=== PATIENT | female | born 1995 | race Caucasian/White ===

== ENCOUNTER 2017-03-06 09:38 | Outpatient (POV) | payer OTHER, SELFPAY | END 2017-03-06 14:10 | disposition home or self-care (01) | PROVIDERS: Visit Provider Podiatrist | DX: M21.41 Flat foot [pes planus] (acquired), right foot (principal); M20.12 Hallux valgus (acquired), left foot; M20.11 Hallux valgus (acquired), right foot; M25.571 Pain in right ankle and joints of right foot | CPT/HCPCS: 99203 ==

== ENCOUNTER → 2017-03-19 12:34 | Outpatient (CLI) | payer OTHER, SELFPAY ==
[2017-03-19 12:53] LABS: Microscopic, Urine URINE MICROSCOPIC (MICROSCOPIC)
--- NOTE | 2017-03-19 13:23 | XR_ITS ---
XR chest 2V HISTORY: Tobacco use, smoker ITS.REASON: SMOKER, PRE OP ORDERING PHYSICIAN: Rose Phipps DPM PATIENT AGE: 22 years COMPARISON: 05/27/2013 FINDINGS: The cardiomediastinal silhouette and pulmonary vascularity are within normal limits. The lungs are clear without infiltrates, suspicious nodules, or pleural effusions. No acute bony abnormalities. IMPRESSION: Negative chest, no acute finding
[2017-03-19 13:47] LABS: Bilirubin,Urine Negative (Negative); Blood, Urine 1+ (Negative); Color,Urine YELLOW (Yellow); Glucose,Urine (UA) Negative (Negative); Ketones,Urine Negative (Negative); Leukocyte Esterase,Urine Negative (Negative); Nitrate,Urine Negative (Negative); PH,Urine 5.5 (5.0-8.5); Protein,Urine Negative (Negative); Specific Gravity, Urine >= 1.030 (1.005-1.030); Urobilinogen,Urine 0.2 EU/dl (0.2)
[2017-03-19 13:49] LABS: Basophils % 0.4 % (0.1-2.0); Eosinophils # 0.1 K/mm3 (0.0-0.4); Eosinophils % 1.3 % (0.1-12.0); Hematocrit 44.5 % (37.0-47.0); Lymphocytes # 2.5 K/mm3 (0.7-4.5); Lymphocytes % 30.5 K/mm3 (10-50); Mean Corpuscular HGB Conc 31.5 g/dL (31.8-35.4); Mean Corpuscular Hemoglobin 25.6 pg (27.0-31.2); Mean Corpuscular Volume 81.4 fl (81-99); Mean Platelet Volume 8.2 fl (7.4-10.4); Monocytes # 0.4 K/mm3 (0.1-1.0); Monocytes % 4.8 % (1.7-9.3); Neutrophils # 5.2 K/mm3 (1.8-7.8); Platelet Count 267 K/mm3 (142-424); Red Blood Count 5.47 M/mm3 (4.20-5.40); Red Cell Distribution Width 13.1 % (11.5-17.5); White Blood Count 8.2 K/mm3 (4.5-13.0)
[2017-03-19 13:58] LABS: Appearance,Urine Slightly Cloudy (Clear)
[2017-03-19 13:59] LABS: Urine Pregnancy, HCG Qual. Negative (Negative)
[2017-03-19 14:04] LABS: Bacteria,Urine Trace /lpf; Squamous Epithelial Cell,Urine 20-50 #/hpf (0-5)
[2017-03-19 15:04] LABS: Anion Gap 10.2 mEq/L (5-15); Blood Urea Nitrogen 12 mg/dL (7-18); Carbon Dioxide 28 mmol/L (21.0-32.0); Chloride 106 mmol/L (98-107); Creatinine,Serum 0.84 mg/dL (0.55-1.02); Estimated Glomerular Filt Rate > 60 ml/min (>60); GFR (African American) > 60 ML/MIN (>60); Glucose 100 mg/dL (74-106); Potassium 4.2 mmoL/L (3.5-5.1); Sodium 140 mmol/L (136-145)
== END ==
PROVIDERS: PCP Family Medicine; Visit Provider Podiatrist
DX: M21.611 Bunion of right foot (principal); M20.41 Other hammer toe(s) (acquired), right foot; Z01.818 Encounter for other preprocedural examination
CPT/HCPCS: 36415; 71046; 80048; 80323; 81001; 81025; 85025; 93005; G0480

== ENCOUNTER 2017-03-26 06:08 | Day surgery (SDC) | payer OTHER, SELFPAY ==
[2017-03-25 12:33] VITALS: BMI 41.4
[2017-03-26] VITALS (13 sets, daily range): BP systolic 105–141; BP diastolic 59–78; PULSE 79–89; RESP 16–26; TEMP 36.2–43; O2SAT 93–100
--- NOTE | 2017-03-26 07:15 | HMH.ANESCL ---
[facility] Anesthesia Checklist - Structural Data Admitted From: Home Planned Operative Procedure/s: bunionectomy Consent for Planned Operative Procedure(s) Verified: Yes Verified Documents: Surgical Consent - NPO Status Verified Time NPO: 12:00 - Additional verifications Anesthesia Reactions: No - Airway Assessment C-Spine Mobility Assessed: Yes TMJ Mobility Assessed: Yes Dentition: Good Dentition - Neurological Assessment Level of Consciousness: Awake, Alert - Anesthesia Plan Anesthesia Risk discussed: Yes Anesthesia Plan: Verified ASA Class: II Anesthesia Type: General [facility] Anesthesia HX I have reviewed the patient's past medical history: Yes Medical History: Denies:: Cancer, Diabetes Mellitus Type 1, Diabetes Mellitus Type 2, MRSA, Seizures Other Medical History: Denies: Blood Transfusion Reaction Laterality Cases: Bilateral: Tonsillectomy Amputation: No Fractures: Yes (broken wrists x2) *Family Hx:: Diabetes, Hypertension, Kidney Disease, Stroke
--- NOTE | 2017-03-26 07:18 | P.PN_ITS ---
[facility] Anesthesia Checklist - Structural Data Admitted From: Home Planned Operative Procedure/s: bunionectomy Consent for Planned Operative Procedure(s) Verified: Yes Verified Documents: Surgical Consent - NPO Status Verified Time NPO: 12:00 - Additional verifications Anesthesia Reactions: No - Airway Assessment C-Spine Mobility Assessed: Yes TMJ Mobility Assessed: Yes Dentition: Good Dentition - Neurological Assessment Level of Consciousness: Awake, Alert - Anesthesia Plan Anesthesia Risk discussed: Yes Anesthesia Plan: Verified ASA Class: II Anesthesia Type: General [facility] Anesthesia HX I have reviewed the patient's past medical history: Yes Medical History: Denies:: Cancer, Diabetes Mellitus Type 1, Diabetes Mellitus Type 2, MRSA, Seizures Other Medical History: Denies: Blood Transfusion Reaction Laterality Cases: Bilateral: Tonsillectomy Amputation: No Fractures: Yes (broken wrists x2) *Family Hx:: Diabetes, Hypertension, Kidney Disease, Stroke
--- NOTE | 2017-03-26 09:17 | FL_ITS ---
FL fluoroscopy >1hr Ordering Physician: Rose Phipps DPM Patient Age: 22 years: Female HISTORY: ITS.REASON: IN OR TECHNIQUE: Multiple spot AP view of a long lateral left foot under fluoroscopy in OR course of podiatry surgery COMPARISON :Plain films right and left foot. February 04, 2017 FINDINGS this side is not specified as to right or left on this study. As on the subsequent postoperative study was supports this as this to the right but The patient has a moderate hallux valgus . The subsequent films demonstrate the surgical changes suggest such with with fusion at the first carpal/metatarsal joint with a bone plate applied dorsally and secured by multiple screws but there is also a pin & subsequent transverse screws at the base of the first and second metatarsals as seen on final image. IMPRESSION: Multiple spot images in OR from fusion of first tarsal metatarsal joint
--- NOTE | 2017-03-26 09:52 | HMH.ANESI ---
[facility] Anesthesia Record Part I Intake, IV Amount: 1,600 Estimated blood loss (mL): 0 Urine output (mL): 0 Blood Pressure: 113/66 SaO2: 100 Pulse Rate: 87 Respiratory Rate: 16 Temperature: 97.5 F Patient is:: Awake, Stable Stable to PACU at:: 09:50
--- NOTE | 2017-03-26 09:53 | XR_ITS ---
XR foot RT min 3V HISTORY: Follow-up surgery ITS.REASON: post op ORDERING PHYSICIAN: Rose Phipps DPM PATIENT AGE: 22 years COMPARISON: 02/04/2017 FINDINGS: There has been fusion of the first metatarsotarsal joint with a bone plate present dorsally and multiple screws. An additional transversely screws present through the base of the first and second metatarsals. There is good alignment of the bony elements. IMPRESSION: Post surgical changes with fusion of the first metatarsal tarsal joint as described above.
--- NOTE | 2017-03-26 09:53 | P.PN_ITS ---
[facility] Anesthesia Record Part II Discharge Time: 10:20 Destination: [facility] PACU nurse assessment reviewed?: Yes Patient Condition:: Good Anesthesia Complications:: None
--- NOTE | 2017-03-26 09:53 | HMH.ANESII ---
[facility] Anesthesia Record Part II Discharge Time: 10:20 Destination: [facility] PACU nurse assessment reviewed?: Yes Patient Condition:: Good Anesthesia Complications:: None
--- NOTE | 2017-03-26 10:12 | HMH.OPNOTE ---
Date of procedure: 03/26/17 Pre-op Diagnosis:: Right hallux abductovalgus deformity Right gastrocnemius equinus Right 2nd digit reducible hammertoe Post-op diagnosis:: other (Same + Right 1st MPJ ganglion cyst) Procedure performed:: 1. Right Lapidus bunionectomy 2. Right Excision of ganglion cyst Surgeon:: Rose Phipps DPM SUPERVISOR [employer]:: Gio Bustillos Anesthesia: GETA Estimated blood loss (mL): 20 Clinical Note:: Ms. Wood is a 22 y/o female who presents for follow up evaluation of painful right foot. Patient has been using the toe spacers and otc inserts. She has not noticed any improvement. Walking barefoot makes pain worse. Wearing supportive tennis shoes help a little. She has also tried to ice, elevate and take NSAIDs. Patient is requesting surgical intervention. Patient/mother states she developed the bunion several years ago. But over the last year the pain is gotten worse. 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 She was referred by Dr. Corley for surgical evaluation. Operative findings:: Right large bunion with first 1st met-cun instability Intercuneiform instability Right 1st MPJ ganglion cyst Operative note:: On this date and time patient was deemed an appropriate surgical candidate. With informed consent signed, the patient was taken to the operating theater, after the anesthesia team had given a pre-op regional popliteal block. The patient was positioned supine. General anesthesia was induced. Tourniquet was applied to the right mid-calf. Right Lapidus Bunionectomy: The right lower extremity was prepped and draped in normal sterile fashion. Attention was directed to the 1st metatarsophalangeal joint (MPJ), where a dorsal linear incision was mapped out extending proximally to the cuneiform. The tourniquet was inflated at 225 mmHg. Dissection was carried thru skin and subcutaneous tissue with care taken to maintain surgical hemostasis and safely retract neurovascular structures. Dissection was then carried through deep fascia and T-out at the level of the 1st MPJ, exposed the met head. There was synovitis and and a ganglion cyst noted over the extensor tendon at the level of the 1st MPJ. Excision of Ganglion Cyst: Attention was directed to the joint where the ganglion was excised sharply with a 15 blade. The specimen was sent to pathology. Attention was directed to the 1st interspace where a lateral release was performed, including release of the adductor tendon at its insertion on the base of the proximal phalanx and release of the fibular suspensory ligament. Some release of the contracture was noted. Attention was then directed proximal to the 1st MCJ, where increased sagittal plane ROM was appreciated. Using saw then hand resection with osteotome and curettes, the cartilage was removed from the met and distal cuneiform. The wound was flushed with copious amounts of saline. A 2.0 drill bit was used to fenestrate the subchondral bone plate to good healthy bleeding bone. At this point, the bunion was reduced and temporary fixation inserted across the 1st MCJ. Position was checked under intra-op fluoroscopy. [facility] Crosscheck lapidus plate was applied distally and 2 distal locking screws followed by intra-fragmentary compression screw followed by 2 proximal locking screws were then inserted in standard technique. Intra operative fluro was used, position and fixation stable. The reduction clamp was removed and there was noted to be some loss of correction and widening of the cuneiforms, indicating intercuneiform instability. A Dartfire 4.0mm cannulated screw was inserted from medial 1st met into the 2nd met base. Good apposition and position was noted. Good compression and better stability noted. The wound was flushed. Attention was directed distally back to the MPJ, where power resection was used to remove the dorsal medial eminence. A capsulotomy was per
--- NOTE | 2017-03-26 10:16 | P.OP_ITS ---
Date of procedure: 03/26/17 Pre-op Diagnosis:: Right hallux abductovalgus deformity Right gastrocnemius equinus Right 2nd digit reducible hammertoe Post-op diagnosis:: other (Same + Right 1st MPJ ganglion cyst) Procedure performed:: 1. Right Lapidus bunionectomy 2. Right Excision of ganglion cyst Surgeon:: Rose Phipps DPM GOLF [employer] PATROLLER:: Gio Bustillos Anesthesia: GETA Estimated blood loss (mL): 20 Clinical Note:: Ms. Wood is a 22 y/o female who presents for follow up evaluation of painful right foot. Patient has been using the toe spacers and otc inserts. She has not noticed any improvement. Walking barefoot makes pain worse. Wearing supportive tennis shoes help a little. She has also tried to ice, elevate and take NSAIDs. Patient is requesting surgical intervention. Patient/mother states she developed the bunion several years ago. But over the last year the pain is gotten worse. 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 She was referred by Dr. Corley for surgical evaluation. Operative findings:: Right large bunion with first 1st met-cun instability Intercuneiform instability Right 1st MPJ ganglion cyst Operative note:: On this date and time patient was deemed an appropriate surgical candidate. With informed consent signed, the patient was taken to the operating theater, after the anesthesia team had given a pre-op regional popliteal block. The patient was positioned supine. General anesthesia was induced. Tourniquet was applied to the right mid-calf. Right Lapidus Bunionectomy: The right lower extremity was prepped and draped in normal sterile fashion. Attention was directed to the 1st metatarsophalangeal joint (MPJ), where a dorsal linear incision was mapped out extending proximally to the cuneiform. The tourniquet was inflated at 225 mmHg. Dissection was carried thru skin and subcutaneous tissue with care taken to maintain surgical hemostasis and safely retract neurovascular structures. Dissection was then carried through deep fascia and T-out at the level of the 1st MPJ, exposed the met head. There was synovitis and and a ganglion cyst noted over the extensor tendon at the level of the 1st MPJ. Excision of Ganglion Cyst: Attention was directed to the joint where the ganglion was excised sharply with a 15 blade. The specimen was sent to pathology. Attention was directed to the 1st interspace where a lateral release was performed, including release of the adductor tendon at its insertion on the base of the proximal phalanx and release of the fibular suspensory ligament. Some release of the contracture was noted. Attention was then directed proximal to the 1st MCJ, where increased sagittal plane ROM was appreciated. Using saw then hand resection with osteotome and curettes, the cartilage was removed from the met and distal cuneiform. The wound was flushed with copious amounts of saline. A 2.0 drill bit was used to fenestrate the subchondral bone plate to good healthy bleeding bone. At this point, the bunion was reduced and temporary fixation inserted across the 1st MCJ. Position was checked under intra-op fluoroscopy. [facility] Crosscheck lapidus plate was applied distally and 2 distal locking screws followed by intra-fragmentary compression screw followed by 2 proximal locking screws were then inserted in standard technique. Intra operative fluro was used, position and fixation stable. The reduction clamp was removed and there was noted to be some loss of correction and widening of the cuneiforms, indicating intercuneiform instability. A Dartfire 4.0mm cannulated screw was inserted from medial 1st met into the 2nd met base.
== END 2017-03-26 11:33 | disposition home or self-care (01) ==
PROVIDERS: PCP Family Medicine; Visit Provider Podiatrist
PROC: (CPT 28297; principal; 2017-03-26 07:30)
DX: M21.611 Bunion of right foot (principal); M67.471 Ganglion, right ankle and foot; M20.41 Other hammer toe(s) (acquired), right foot
CPT/HCPCS: 28297; 28090; 28285; 73620; 73630; 76001; 96374; C1713; C1762; C1776; J2405

== ENCOUNTER → 2017-04-09 12:05 | Outpatient (CLI) | payer OTHER, SELFPAY ==
--- NOTE | 2017-04-09 | XR_ITS ---
XR foot RT min 3V HISTORY: Follow-up surgery ORDERING PHYSICIAN: Rose Phipps DPM PATIENT AGE: 22 years COMPARISON: 03/26/2017 FINDINGS: There is a dictated through a split. Weightbearing views are performed. There is good alignment of the first metatarsal tarsal junction as well as the base of the second and first metatarsals. Persistent bone plate noted dorsally at the first metatarsal tarsal junction with a transverse screw extending from the base of the first metatarsal into the base of the second metatarsal. IMPRESSION: No change status post arthrodesis of the first metatarsophalangeal joint with good alignment.
== END ==
PROVIDERS: Visit Provider Podiatrist
DX: Z98.890 Other specified postprocedural states (principal); S92.344D Nondisplaced fracture of fourth metatarsal bone, right foot, subsequent encounter for fracture with routine healing
CPT/HCPCS: 73630

== ENCOUNTER → 2017-04-22 08:20 | Outpatient (CLI) | payer OTHER, SELFPAY ==
--- NOTE | 2017-04-22 | XR_ITS ---
XR foot RT min 3V HISTORY: Follow-up surgery ITS.REASON: POST OP VIEWS ORDERING PHYSICIAN: Rose Phipps DPM PATIENT AGE: 22 years COMPARISON: 04/09/2017 FINDINGS: The cast has been removed. Status post arthrodesis of the first metatarsal tarsal joint as previously described with good alignment with a transverse screw present through the base of the first and second metatarsals. There is mild soft tissue swelling medially first metatarsophalangeal joint There is a nondisplaced fracture at the base of the fourth metatarsal not readily apparent previously. IMPRESSION: 1. Stable postsurgical changes of the first metatarsotarsal joint 2. Nondisplaced transverse fracture base of the metatarsal
== END ==
PROVIDERS: Visit Provider Podiatrist
DX: Z98.890 Other specified postprocedural states (principal)
CPT/HCPCS: 73630

== ENCOUNTER → 2017-05-13 08:02 | Outpatient (CLI) | payer OTHER, SELFPAY ==
--- NOTE | 2017-05-13 08:55 | XR_ITS ---
XR foot RT min 3V HISTORY: Follow-up surgery ITS.REASON: POST OP ORDERING PHYSICIAN: Rose Phipps DPM PATIENT AGE: 22 years COMPARISON: 04/22/2017 FINDINGS: Status post arthrodesis of the first metatarsal tarsal joint as previously described with good alignment with a transverse screw present through the base of the first and second metatarsals. There is mild soft tissue swelling medially first metatarsophalangeal joint There is a nondisplaced fracture at the base of the fourth metatarsal with decrease prominence of the fracture line consistent with healing. IMPRESSION: 1. Stable postsurgical changes of the first metatarsotarsal joint 2. Healing nondisplaced transverse fracture base of the fourth metatarsal
== END ==
PROVIDERS: Visit Provider Podiatrist
DX: Z98.890 Other specified postprocedural states (principal)
CPT/HCPCS: 73630

== ENCOUNTER 2017-06-04 14:00 | Outpatient (RCR) | payer OTHER, SELFPAY ==
--- NOTE | 2017-05-16 14:33 | HMH.PTOPEV ---
Rehab Outpatient Evaluation Rehab OP Evaluation Start: 05/16/17 14:20 Freq: Status: Active Protocol: Document 05/16/17 14:20 KIEL (Rec: 05/16/17 14:33 KIEL [id number]) Electronically Signed By Connor Hernandes, PT 05/16/17 14:20 Outpatient Therapy Subjective History Subjective History Pt presents s/p R lapidus procedure on 03/26/17. Pt reports some residual R foot pain since sx., [place]. w/wt. bearing activities in street shoes. Pt reports some mild weakness in R foot and ankle, but progressing well. Chief Complaint Pain Weakness Symptom Type Ache Sharp Dull Symptoms Relieved By Rest/Positioning Symptoms Aggravated By Standing Physical Activity Walking Prior Functional Limitations None Current Functional Limitations Standing Walking Stairs Symptom Description Constant but Variable Level of pain today (0-10) 3 Pain scale - at its best (0-10) 2 Pain scale - at its worst (0-10) 5 Ankle/Foot Eval Gait Observation General Gait Pattern Observation Antalgic Gait Palpation Tenderness right Ankle/Foot Palpation Findings Tenderness Ankle/Foot Palpation Overall Comment 1st ray 3/4 ROM Ankle/Foot Dorsiflexion w/Knee Flexed 0-15 Active Range of Motion (degrees) Ankle/Foot Plantar Flexion Active Range 0-50 of Motion (degrees) Ankle/Foot Eversion Active Range of 0-11 Motion (degrees) Ankle/Foot Inversion Active Range of 0-45 Motion (degrees) Ankle/Foot ROM Limitations Pain MMT Ankle Dorsiflexion Strength Grade 4 Good Ankle Plantarflexion Strength Grade 4 Good Foot Eversion Strength Grade 4- Good- Foot Inversion Strength Grade 4- Good- Outpatient Therapy Assessment Impairments Problems/Impairmments Palpation Tenderness Impaired Range of Motion Impaired Strength Impaired Gait Pattern Impaired Walking Impaired Standing Impaired Stair Climbing Subjective C/O Pain Impaired Self Care/Self Management Prognosis Rehab Potential Good Clinical Impression Consistent with Diagnosis
== END 2017-06-04 14:01 | disposition home or self-care (01) ==
LOC: PT 14:00
PROVIDERS: Visit Provider Podiatrist
DX: Z98.890 Other specified postprocedural states (principal); M20.11 Hallux valgus (acquired), right foot
CPT/HCPCS: 97010; 97014; 97033; 97035; G0283

== ENCOUNTER → 2017-06-24 08:52 | Outpatient (CLI) | payer OTHER, SELFPAY ==
--- NOTE | 2017-06-24 08:54 | XR_ITS ---
Right foot 3 views Weightbearing Foot 3 Views HISTORY: Follow-up surgery/fusion ORDERING PHYSICIAN: Rose Phipps DPM PATIENT AGE: 22 years COMPARISON: 05/13/2017 FINDINGS: Overall no change status post dorsal bone plate placement at the medial cuneiform and first metatarsal with a transverse screw through the base of the first metatarsal into the base of the second metatarsal. Status post fusion of the first metatarsal tarsal joint. No change in alignment. Previously noted fracture at the base of the fourth metatarsal less apparent. IMPRESSION: Overall no change status post fusion of the first tarsometatarsal joint
== END ==
PROVIDERS: Visit Provider Podiatrist
DX: Z98.890 Other specified postprocedural states (principal)
CPT/HCPCS: 73630

== ENCOUNTER 2019-08-12 12:28 | Emergency (ER) | payer OTHER, SELFPAY ==
[2019-08-12 12:41] VITALS: BP 159/99; PULSE 96; RESP 16; TEMP 36.6; O2SAT 96; BMI 43.0
--- NOTE | 2019-08-12 13:32 | HMH.EDWNDL ---
ED Disposition Clinical Impression: Laceration Disposition: Home, Self-Care Condition on Discharge: Good Instructions: DI for Laceration Repair Referrals: Edis Mccoy MD [Primary Care Provider] - Forms: Work/School Release - Critical Care Critical Care Time: No Attestation: On 08/12/19, the high probability of a clinically significant, sudden or life threatening deterioration of the following system(s) required my full and direct attention, intervention and personal management. The time I documented below is in addition to time spent performing reported procedures but includes the following listed in this critical care notation. Medical Decision Making - Medical Records Medical records reviewed: Yes: I reviewed the patient's medical records. - Yaya Inquiry Pt receiving controlled substance: No Vital Signs: 08/12/19 12:41 Temperature 98 F Temperature Source Oral Pulse Rate [Left Radial] 96 H Respiratory Rate 16 Blood Pressure [Right Arm] 159/99 H Blood Pressure Mean [Right Arm] 119 Blood Pressure Position [Right Arm] Sitting 02 Sat by Pulse Oximetry 96 Oxygen Delivery Method Room Air - Lab Data Lab results reviewed: Yes: I reviewed the patient's lab results. Orders (Tests/Meds): ED MEDICATIONS Discontinued Medications Generic Name Dose Route Start Last Admin Trade Name Freq PRN Reason Stop Dose Admin Tetanus/Reduced Diphtheria/Acell Pertussis 0.5 ml 08/12/19 12:47 08/12/19 12:50 Adacel Tdap 0.5ml Syringe IM 08/12/19 12:48 0.5 ml .ONCE ONE Administration Wound/Laceration HPI - General Chief Complaint: Wound/Laceration Stated Complaint: [id number] left thumb injury Time Seen by Provider: 08/12/19 13:32 Mode of Arrival: Ambulatory Source of Information: Patient Limitations: No Limitations Description of Symptoms (Recalled from ER Triage Doc. 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 no active bleeding noted - History of Present Illness HPI narrative: 24-year-old female presents the ED with a laceration on her index finger. 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 Or she may have been cutting peppers. Nonetheless she has a minor laceration to the nailbed on the left index finger that just happened prior to arrival. Patient denies any pain. Patient denies any other symptoms. - Related Data Previous Rx's Medication Instructions Recorded [id number]-[id number] 10 ml PO Q4-6H PRN #240 ml 04/10/18 2 mg-30 mg-10 mg/5 mL oral syrup Tizanidine HCl [Zanaflex 4mg 4 mg PO TID PRN 7 Days #20 tab 10/23/18 tab] Ibuprofen [Ibuprofen 600mg 600 mg PO Q6HP PRN #30 tab 03/21/19 Tablet] Allergies Allergy/AdvReac Type Severity Reaction Status Date / Time No Known Allergies Allergy Unverified 04/10/18 15:12 [facility] History - Hepatitis A Screen Drug use history?: No High risk sexual behaviors?: No History of sexually transmitted infection?: No Currently employed?: No Childcare worker?: No Do you have indoor plumbing?: Yes Do you have electricity?: Yes Attestation statement:: This patient has been screened for Hepatitis A risk factors. I have reviewed the patient's past medical history: Yes Medical History: Reports:: Asthma Denies:: Cancer, Diabetes Mellitus Type 1, Diabetes Mellitus Type 2, MRSA, Seizures Other Medical History: Denies: Blood Transfusion Reaction Laterality Cases: Bilateral: Tonsillectomy, Other Other Surgeries: Yes: Other Amputation: No Fractures: Yes (broken wrists x2) - Social History Smoking Status: Current every day smoker Tobacco Type: cigarettes # Packs/Day (cigarettes): 1 #Yrs smoked (if former smoker): 4 Alcohol Intake: never Alcohol Intake Frequency:: 0-2 drinks per day Occupational Status: other Housing: other Household Members: other Family Hx:: Diabetes, Hypertension, Kidney Disease, Stroke ROS Obtained: Yes All systems reviewed & no aleta
[2019-08-12 13:34] VITALS: BP 150/89; PULSE 77; RESP 16; TEMP 36.6; O2SAT 98
== END 2019-08-12 13:35 | disposition home or self-care (01) ==
PROVIDERS: Emergency Provider Family Medicine; PCP Family Medicine
DX: S61.012A Laceration without foreign body of left thumb without damage to nail, initial encounter (principal); W26.0XXA Contact with knife, initial encounter; Y92.69 Other specified industrial and construction area as the place of occurrence of the external cause; Y99.0 Civilian activity done for income or pay; Z23 Encounter for immunization
CPT/HCPCS: 12001; 90471; 90715; 99282

== ENCOUNTER 2020-03-26 10:20 | Emergency (ER) | payer OTHER, SELFPAY ==
[2020-03-26 10:35] VITALS: BP 116/77; PULSE 83; RESP 17; TEMP 36.8; O2SAT 99; BMI 42.2
--- NOTE | 2020-03-26 10:58 | HMH.EDUTC ---
[facility] [place] Disposition Clinical Impression: Exposure to COVID-19 virus Disposition: Home, Self-Care Condition on Discharge: Good Instructions: DI for COVID-19 (Suspected or Confirmed ), Coronavirus Disease 2019, Preventing the Spread of Coronavirus Discharge Instructions Additional Instructions: *Monitor Temp, Over the counter Motrin or Tylenol as directed/as needed Tylenol every 4 hours and Motrin every 6 hours (as long as your family doctor has told you that you can take it) for fever or pain. and straight to ER if unable to lower temp less than 101.0 after medication given Follow up IMMEDIATELY for new or worsening symptoms or no Noticeable improvement over the next 48-72 hours. 911 for difficulty breathing or swallowing You were tested for today for COVID19 your test result should be back in the next 24-48 hours, you may call to the [facility] to see if your test results are back in the next 48 hours [phone] [facility] hours are 9am-9pm You was given a handout with instructions for Self Quarantine and Self isolation for while you wait on test results and what to do if they are positive If you are positive the Health Dept will be contacting you also Referrals: Tay Ace MD [Primary Care Provider] - As needed Forms: Work/School Release Time of Disposition: 10:59 Medical Decision Making - Yaya Inquiry Pt receiving controlled substance: No Yaya was queried for this patient: No Vital Signs: 03/26/20 10:35 Temperature 98.2 F Temperature Source Oral Pulse Rate [Right Brachial] 83 Respiratory Rate 17 Blood Pressure [Right Arm] 116/77 Blood Pressure Mean [Right Arm] 90 Blood Pressure Source [Right Arm] Automatic Cuff Blood Pressure Position [Right Arm] Sitting 02 Sat by Pulse Oximetry 99 Oxygen Delivery Method Room Air Orders (Tests/Meds): ORDERS Category Date Time Status Covid-19 Nasal PCR ([facility]) Routine Lab 03/26/20 10:24 Ordered [facility] [place] HPI - General Stated complaint: covid test Time Seen by Provider: 03/26/20 10:58 Mode of Arrival: Ambulatory Source of Information: Patient Limitations: No Limitations Description of Symptoms (Recalled from Triage Doc. by RN): COVID TEST D/T EXPOSURE; DENIES SYMPTOMS HEENT Symptoms (Recalled from RN notes): No Resp Symptoms (Recalled from RN notes): No Skin Symptoms (Recalled from RN notes): No MS Symptoms (Recalled from RN notes): No Functional Status (Recalled from RN notes): WNL - History of Present Illness Provider Complaint: Patient states that she lives with her mother and she tested positive for COVID yesterday States that she isnt having any symptoms but wanted to get tested - Related Data Previous Rx's Medication Instructions Recorded cbbgiwqwyypjhsy-yghccqssvupufiv-WJ 10 ml PO Q4-6H PRN #240 ml 04/10/18 2 mg-30 mg-10 mg/5 mL oral syrup Tizanidine HCl [Zanaflex 4mg 4 mg PO TID PRN 7 Days #20 tab 10/23/18 tab] Ibuprofen [Ibuprofen 600mg 600 mg PO Q6HP PRN #30 tab 03/21/19 Tablet] Allergies Allergy/AdvReac Type Severity Reaction Status Date / Time No Known Allergies Allergy Unverified 04/10/18 15:12 - Worker's Comp Is this a Worker's Comp case?: No [facility] History - Hepatitis A Screen Drug use history?: No High risk sexual behaviors?: No History of sexually transmitted infection?: No Currently employed?: No Childcare worker?: No Do you have indoor plumbing?: Yes Do you have electricity?: Yes Attestation statement:: This patient has been screened for Hepatitis A risk factors. I have reviewed the patient's past medical history: Yes Medical History: Reports:: Asthma Denies:: Cancer, Diabetes Mellitus Type 1, Diabetes Mellitus Type 2, MRSA, Seizures Other Medical History: Denies: Blood Transfusion Reaction Laterality Cases: Bilateral: Tonsillectomy, Other Other Surgeries: Yes: Other Amputation: No Fractures: Yes (broken wrists x2) - Social History Smoking Status: Current every day smoker Tobacco Type: cigarettes
[2020-03-26 10:59] VITALS: BP 116/77; PULSE 83; RESP 17; TEMP 36.8; O2SAT 99
--- NOTE | 2020-03-26 17:11 | PC.NURSE ---
PT NOTIFIED OF POSITIVE COVID RESULT
== END 2020-03-26 11:00 | disposition home or self-care (01) ==
PROVIDERS: Emergency Provider Nurse Practitioner; PCP Internal Medicine Adolescent Medicine
DX: U07.1 COVID-19 (principal); J45.909 Unspecified asthma, uncomplicated; Z79.899 Other long term (current) drug therapy
CPT/HCPCS: 99202; G0463; U0003

== ENCOUNTER 2020-08-24 13:42 | Emergency (ER) | payer SELFPAY ==
[2020-08-24 13:45] VITALS: BP 133/77; PULSE 74; RESP 21; TEMP 36.8; O2SAT 99; BMI 44.5
[2020-08-24 14:05] VITALS: BP 133/77; PULSE 74; RESP 21; TEMP 36.8; O2SAT 99
--- NOTE | 2020-08-24 14:07 | HMH.EDUTC ---
[facility] [place] Clinical Impression: Otitis media Qualifiers: Otitis media type: suppurative Chronicity: acute Laterality: bilateral Recurrence: non-recurrent Spontaneous tympanic membrane rupture: without spontaneous rupture Qualified Code(s): H66.003 - Acute suppurative otitis media without spontaneous rupture of ear drum, bilateral Disposition: Home, Self-Care Condition on Discharge: Good Instructions: Middle Ear Infection Additional Instructions: Drink plenty of fluids. Take tylenol or ibuprofen for pain or fever. Take the medications as directed. Follow up with your regular doctor. GO TO THE ER FOR ANY WORSENING SYMPTOMS Prescriptions: Pseudoephedrine HCl 30 mg PO Q6HP PRN #30 tab PRN Reason: Congestion Transmission Status: Received by [id number] Amoxicillin/Potassium Clav [Augmentin 875-125 Tablet] 1 tab PO Q12H 10 Days #20 tab Transmission Status: Received by [email or web address] methylPREDNISolone [Medrol] 4 mg PO DIRECTED 6 Days #21 tab.ds.pk Transmission Status: Received by [id number] Referrals: Provider,Referral, [Primary Care Provider] - Forms: Work/School Release Time of Disposition: 14:09 Medical Decision Making - Medical Records Medical records reviewed: No: I reviewed the patient's medical records. - Yaya Inquiry Pt receiving controlled substance: No Vital Signs: 08/24/20 13:45 08/24/20 14:05 Temperature 98.3 F 98.3 F Temperature Source Oral Pulse Rate 74 Pulse Rate [Right Brachial] 74 Respiratory Rate 21 21 Blood Pressure 133/77 Blood Pressure [Right Arm] 133/77 Blood Pressure Mean [Right Arm] 95 Blood Pressure Source [Right Arm] Automatic Cuff Blood Pressure Position [Right Arm] Sitting 02 Sat by Pulse Oximetry 99 Oxygen Delivery Method Room Air [facility] [place] - General Stated complaint: cant hear out of Rt ear Time Seen by Provider: 08/24/20 14:07 Mode of Arrival: Ambulatory Source of Information: Patient Limitations: No Limitations Description of Symptoms (Recalled from Triage Doc. by RN): PATIENT C/O TROUBLE HEARING OUT OF RIGHT EAR WITH PRESSURE AND RINGING IN IT X 1.5 WEEKS. STATES LEFT EAR IS BEGINNING TO FEEL THE SAME WAY HEENT Symptoms (Recalled from RN notes): Yes Resp Symptoms (Recalled from RN notes): No Skin Symptoms (Recalled from RN notes): No MS Symptoms (Recalled from RN notes): No Functional Status (Recalled from RN notes): WNL - History of Present Illness Provider Complaint: She c/o decreased hearing and pain of her left ear. She denies any fever or chills. - Related Data Previous Rx's Medication Instructions Recorded Amoxicillin/Potassium Clav 1 tab PO Q12H 10 Days #20 tab 08/24/20 [Augmentin 875-125 Tablet] Pseudoephedrine HCl 30 mg PO Q6HP PRN #30 tab 08/24/20 methylPREDNISolone [Medrol] 4 mg PO DIRECTED 6 Days #21 08/24/20 tab.ds.pk Allergies Allergy/AdvReac Type Severity Reaction Status Date / Time No Known Allergies Allergy Verified 03/26/20 10:58 - Worker's Comp Is this a Worker's Comp case?: No [facility] History - Hepatitis A Screen Drug use history?: No High risk sexual behaviors?: No History of sexually transmitted infection?: No Currently employed?: No Childcare worker?: No Do you have indoor plumbing?: Yes Do you have electricity?: Yes Attestation statement:: This patient has been screened for Hepatitis A risk factors. I have reviewed the patient's past medical history: Yes Medical History: Reports:: Asthma Denies:: Cancer, Diabetes Mellitus Type 1, Diabetes Mellitus Type 2, MRSA, Seizures Other Medical History: Denies: Blood Transfusion Reaction Laterality Cases: Bilateral: Tonsillectomy, Other Other Surgeries: Yes: Other Amputation: No Fractures: Yes (broken wrists x2) - Social History Smoking Status: Current every day smoker Tobacco Type: cigarettes # Packs/Day (cigarettes): 1 #Yrs smoked (if former smoker): 4 Alcohol Intake: never Alcohol Intake
== END 2020-08-24 14:13 | disposition home or self-care (01) ==
PROVIDERS: Emergency Provider Nurse Practitioner Family
DX: H66.003 Acute suppurative otitis media without spontaneous rupture of ear drum, bilateral (principal); F17.210 Nicotine dependence, cigarettes, uncomplicated; J45.909 Unspecified asthma, uncomplicated
CPT/HCPCS: 99202; G0463

== ENCOUNTER 2021-05-18 18:43 | Emergency (ER) | payer SELFPAY ==
[2021-05-18 18:45] VITALS: BP 133/87; PULSE 109; RESP 20; TEMP 38; O2SAT 97; BMI 46.3
--- NOTE | 2021-05-18 19:26 | HMH.EDUTC ---
[facility] [place] Disposition Clinical Impression: Nausea vomiting and diarrhea Disposition: Home, Self-Care Condition on Discharge: Good Instructions: Nausea and Vomiting-Adult, Diarrhea Additional Instructions: Drink extra fluids with and between meals. If you have difficulty drinking, try very small amounts of water or suck on ice chips. ? Avoid fruit juices, as these do not replace minerals and can actually increase diarrhea. ? Children and adults can use sports drinks to replenish electrolytes. Younger children and infants should use products formulated for children, like oral rehydration solutions. ? Eat food in small amounts and let your stomach recover. ? Get lots of rest. You may feel tired or weak. ? No greasy or fried foods for the next 24-48 hours BRAT diet Bananas Rice Apples and Turpin ? Make sure to drink plenty of liquids ? Return if needed ? Straight to ER if any life threatening symptoms ? Zofran as prescribed ? Follow up with family doctor in the next 48-72 hours if no improvement or any worsening of symptoms Prescriptions: Ondansetron [Zofran 4mg ODT] 4 mg PO TIDP PRN #12 tab PRN Reason: Vomiting Transmission Status: Pending to [id number] Referrals: Tay Ace MD [Primary Care Provider] - As needed Time of Disposition: 20:08 Medical Decision Making - Yaya Inquiry Pt receiving controlled substance: No Yaya was queried for this patient: No Vital Signs: 05/18/21 18:45 Temperature 100.4 F H Temperature Source Oral Pulse Rate [Right Brachial] 109 H Respiratory Rate 20 Blood Pressure [Right Arm] 133/87 Blood Pressure Mean [Right Arm] 102 Blood Pressure Source [Right Arm] Automatic Cuff Blood Pressure Position [Right Arm] Sitting 02 Sat by Pulse Oximetry 97 Oxygen Delivery Method Room Air - Lab Data Lab results reviewed: Yes: I reviewed the patient's lab results. Lab Results 05/18/21 19:34: [facility] Negative Orders (Tests/Meds): ED MEDICATIONS Discontinued Medications Generic Name Dose Route Start Last Admin Trade Name Freq PRN Reason Stop Dose Admin Ondansetron HCl 4 mg 05/18/21 19:40 Ondansetron 4mg Odt SL 05/18/21 19:41 ONCE ONE Medical Decision Narrative: Patient drinking water after zofran no vomiting [facility] [place] HPI - General Stated complaint: V&D. Time Seen by Provider: 05/18/21 19:26 Mode of Arrival: Ambulatory Source of Information: Patient Limitations: No Limitations Description of Symptoms (Recalled from Triage Doc. by RN): PATIENT C/O VOMITING AND DIARRHEA SINCE LAST NIGHT, FEVER TODAY HEENT Symptoms (Recalled from RN notes): No Resp Symptoms (Recalled from RN notes): No Skin Symptoms (Recalled from RN notes): No MS Symptoms (Recalled from RN notes): No Functional Status (Recalled from RN notes): WNL - History of Present Illness Provider Complaint: Lianat states that she was around mother that had stomach virus last week States that she has been having vomiting and diarrhea since last night State that when she eats it makes her sick at her stomach but she has been able to drink and keep it down States that this evening she was still having nausea so she came in to see if she can get something for it - Related Data Previous Rx's Medication Instructions Recorded Ondansetron [Zofran 4mg ODT] 4 mg PO TIDP PRN #12 tab 05/18/21 Allergies Allergy/AdvReac Type Severity Reaction Status Date / Time No Known Allergies Allergy Verified 03/26/20 10:58 - Worker's Comp Is this a Worker's Comp case?: No [facility] History - Hepatitis A Screen Drug use history?: No High risk sexual behaviors?: No History of sexually transmitted infection?: No Currently employed?: No Childcare worker?: No Do you have indoor plumbing?: Yes Do you have electricity?: Yes Attestation statement:: This patient has been screened for Hepatitis A risk factors. I have reviewed the patient's past medical history: Yes Medical History:
[2021-05-18 19:43] LABS: UTC Pregnancy Test, Urine Negative (Negative)
[2021-05-18 20:09] VITALS: BP 133/87; PULSE 109; RESP 20; TEMP 37.2; O2SAT 97
== END 2021-05-18 20:13 | disposition home or self-care (01) ==
PROVIDERS: Emergency Provider Nurse Practitioner; PCP Internal Medicine Adolescent Medicine
DX: R11.2 Nausea with vomiting, unspecified (principal); R19.7 Diarrhea, unspecified; R50.9 Fever, unspecified; J45.909 Unspecified asthma, uncomplicated; F17.210 Nicotine dependence, cigarettes, uncomplicated; Z82.49 Family history of ischemic heart disease and other diseases of the circulatory system; Z83.3 Family history of diabetes mellitus; Z84.1 Family history of disorders of kidney and ureter
CPT/HCPCS: 81025; 99213; G0463

== ENCOUNTER 2022-05-05 22:21 | Emergency (ER) | payer OTHER, SELFPAY ==
[2022-05-05 22:21] VITALS: BP 136/64; PULSE 91; RESP 17; TEMP 36.8; O2SAT 100; BMI 43.3
--- NOTE | 2022-05-05 22:27 | XR_ITS ---
PROCEDURE INFORMATION: Exam: XR Chest Exam date and time: 05/05/2022 11:13 PM Age: 27 years old Clinical indication: Chest wall pain; Additional info: Chest pain TECHNIQUE: Imaging protocol: Radiologic exam of the chest. Views: 1 view. COMPARISON: CR CXR1VP XR chest portable 10/08/2017 6:55 PM FINDINGS: Lungs: Unremarkable. No consolidation. Pleural spaces: Unremarkable. No pleural effusion. No pneumothorax. Heart/Mediastinum: Unremarkable. No cardiomegaly. Bones/joints: Unremarkable. IMPRESSION: No acute findings.
--- NOTE | 2022-05-05 22:27 | ECG_ITS ---
APPROVED REPORT Exam: Resting ECG HR:89 bpm ECG Measurements Heart Rate 89 AXES MS 144 P 28 QRSd 102 QRS 67 QT 347 T 17 QTc 394 Conclusion SINUS RHYTHM NORMAL ECG UNCONFIRMED REPORT Electronically signed by : Tay Ace MD 05/06/2022 18:51:41
[2022-05-05 22:30] VITALS: BP 127/79; PULSE 87; RESP 21; O2SAT 100
[2022-05-05 22:34] LABS: Basophils # 0.1 K/mm3 (0-0.2); Eosinophils # 0.3 K/mm3 (0.0-0.4); Hematocrit 42.8 % (37.0-47.0); Lymphocytes # 3.8 K/mm3 (0.7-4.5); Mean Corpuscular HGB Conc 32.7 g/dL (31.8-35.4); Mean Corpuscular Volume 76.6 fl (81-99); Mean Platelet Volume 8.5 fl (7.4-10.4); Monocytes # 0.6 K/mm3 (0.1-1.0); Monocytes % 4.6 % (1.7-9.3); Neutrophils # 8.2 K/mm3 (1.8-7.8); Neutrophils % 63.3 % (37.0-80.0); Platelet Count 379 K/mm3 (142-424); Red Blood Count 5.59 M/mm3 (4.20-5.40); Red Cell Distribution Width 14.3 % (11.5-17.5); White Blood Count 12.9 K/mm3 (4.8-10.8)
[2022-05-05 22:37] LABS: Chloride 112 mmol/L (98-107)
--- NOTE | 2022-05-05 22:37 | PC.NURSE ---
Rounded on patient, no needs at this time.
[2022-05-05 22:38] LABS: Potassium 4.1 mmoL/L (3.5-5.1); Sodium 145 mmol/L (136-145)
[2022-05-05 22:40] LABS: Alanine Aminotransferase 30 U/L (12-78); Anion Gap 11.1 mEq/L (5-15); Aspartate Amino Transferase 33 U/L (14-36); Blood Urea Nitrogen 9 mg/dl (7-17); Carbon Dioxide 26 mmol/L (22.0-30.0); Creatinine Clearance Estimated 124 mL/min (50-200); Estimated Glomerular Filt Rate 102 ml/min (>60); GFR (African American) 123 ML/MIN (>60)
[2022-05-05 22:41] LABS: Albumin Level 4.5 g/dl (3.5-5.0); Alkaline Phosphatase 82 U/L (38-126); Bilirubin,Direct 0.2 mg/dl (0.0-0.4); Bilirubin,Total 0.2 mg/dl (0.2-1.3); Calcium 8.6 mg/dl (8.4-10.2); Glucose 96 mg/dl (74-100); Lipase 62 U/L (23-300)
[2022-05-05 23:01] VITALS: BP 108/77; PULSE 73; RESP 17; O2SAT 100
[2022-05-05 23:05] LABS: HCG,Quantitative < 2 mIU/ml (0-5.42)
[2022-05-05 23:38] LABS: Troponin I < 0.01 ng/ml (0.00-0.034)
--- NOTE | 2022-05-06 00:03 | PC.NURSE ---
Rounded on patient, no needs voiced at this time.
--- NOTE | 2022-05-06 00:25 | CT_ITS ---
PROCEDURE INFORMATION: Exam: CTA Chest With Contrast Exam date and time: 05/06/2022 12:49 AM Age: 27 years old Clinical indication: Pain; Chest pressure; Additional info: Chest pain TECHNIQUE: Imaging protocol: Computed tomographic angiography of the chest with contrast. 3D rendering (Not supervised by radiologist): MIP and/or 3D reconstructed images were created by the technologist. Radiation optimization: All CT scans at this facility use at least one of these dose optimization techniques: automated exposure control; mA and/or kV adjustment per patient size (includes targeted exams where dose is matched to clinical indication); or iterative reconstruction. Contrast material: ISOVUE; Contrast volume: 70 ml; Contrast route: INTRAVENOUS (IV); Other protocol: This patient has received 0 known CTs and 0 known cardiac nuclear medicine studies in the 12 months prior to the current study. COMPARISON: CR XR CHEST PORTABLE 05/05/2022 11:13 PM FINDINGS: Pulmonary arteries: Study is limited by suboptimal opacification of the pulmonary arteries as well as beam hardening artifact secondary to patient's size. Aorta: Unremarkable. No aortic aneurysm. No aortic dissection. Lungs: Unremarkable. No consolidation. No masses. Pleural spaces: Unremarkable. No pneumothorax. No pleural effusion. Heart: Unremarkable. No cardiomegaly. No pericardial effusion. Lymph nodes: Unremarkable. No enlarged lymph nodes. Bones/joints: Unremarkable. No acute fracture. Soft tissues: Unremarkable. IMPRESSION: Slightly limited study due to factors described above. No evidence of pulmonary embolus or other acute abnormality in the chest
[2022-05-06 00:30] VITALS: BP 108/65; PULSE 71; O2SAT 98
--- NOTE | 2022-05-06 00:52 | PC.NURSE ---
pt return from radiology
[2022-05-06 00:57] LABS: Erythrocyte Sedimentation Rate 14 mm/hr (0-20)
[2022-05-06 01:00] VITALS: BP 101/55; PULSE 76; RESP 19; O2SAT 100
[2022-05-06 01:04] LABS: C-Reactive Protein 13.2 mg/L (0-4)
--- NOTE | 2022-05-06 01:25 | HMH.EDCP ---
Discharge Plan Disposition Patient Disposition: Home, Self-Care Chief Complaint: Chest Pain Prescriptions Prescriptions: No Action ondansetron 4 MG tablet,disintegrating 4 mg PO TIDP PRN (Reason: Vomiting) Qty: 12 0RF Referrals Follow up/Referrals: Provider,Referral, MD [Primary Care Provider] - See instructions Clinical Impressions Clinical Impression: Chest pain Instructions Patient Instructions: DI for Atypical Chest Pain Discharge ED Provider: Corrine (ED)[facility] Chest Pain HPI General Chief Complaint: Chest Pain Stated Complaint: Chest Pain Time Seen by Provider: 05/06/22 00:05 Mode of Arrival: EMS Source of Information: Patient, Significant Other, EMS and Medical Record Limitations: No Limitations Description of Symptoms (Recalled from ER Triage Doc. by RN): 27 F presents with mid-sternal, sharp chest pain that began yesterday while at home. 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 NAD on arrival. VSS. 345mg PO ASA administered in route. 20g LAC per EMS History of Present Illness HPI narrative: pt with episode of ant chest pain to lt upper ext w/o known card dis and no tob use or diabetes - no recent viral illness MD complaint: chest pain Onset (ago): day(s) Duration: intermittent and now resolved Activity at onset: light activity Pain location: left chest Severity: moderate Quality: sharp Pain radiation: none Risk Factors for CAD: Family Hx of CAD Treatments prior to or on arrival for Cardiac Chest Pain: none DONNA Score for Non-Stemi Age of Patient: <30 years old Heart Rate: 70-89 bpm Systolic Blood Pressure: 100-119 mmHg Serum Creatinine: 0.40-0.79 mg/dl CHF [place] Class: I-No CHF Other Risk Factors: None Non-Stemi Risk Score: 56 Risk Stratification: 1-108 = Low Risk Related Data On Oral Contraceptives: No Previous Rx's Medication Instructions Recorded ondansetron 4 mg disintegrating 4 mg PO TIDP PRN Vomiting #12 tabs 05/18/21 tablet Allergies Allergy/AdvReac Type Severity Reaction Status Date / Time No Known Allergies Allergy Verified 03/26/20 10:58 [facility] Disclaimer: The information contained in this section may have been updated after the patient was seen, as this information can be updated by other users. Social History Smoking Status: Never smoker second hand exposure: Yes alcohol intake: never counseling provided: none current occupational status: other Travel in the last 8 weeks: None household members: other housing: other ROS Obtained: Yes All systems reviewed & no additional complaints except as documented Physical Exam General General appearance: alert Head Head exam: normocephalic Eye Eye exam: Present PERRL and EOMI ENT ENT exam: Present mucous membranes moist Neck Neck exam: Present trachea midline Respiratory Respiratory exam: Present normal lung sounds bilaterally; Absent respiratory distress Cardiovascular Cardiovascular exam: Present regular rate Abdominal Exam Abdominal exam: Present soft Extremities Exam Extremities exam: Present full ROM Neurological Exam Neurological exam: Present alert, oriented X3 and CN II-XII intact; Absent motor sensory deficit Skin Skin exam: Absent rash Medical Decision Making Medical Records Medical records reviewed: Yes I reviewed the patient's medical records. Yaya Inquiry Pt receiving controlled substance: No Vital Signs: 05/05/22 22:21 05/05/22 22:30 05/05/22 23:01 Temperature 98.3 F Temperature Source Oral Pulse Rate 87 73 Pulse Rate [Left] 91 H Respiratory Rate 17 21 17 Blood Pressure 127/79 108/77 L Blood Pressure [Right Arm] 136/64 Blood Pressure Mean 89 83 Blood Pressure Mean [Right Arm] 88 Blood Pressure Source [Right Arm] Automatic Cuff Blood Pressure Position [Right Arm] Sitting 02 Sat by Pulse Oximetry 100 100 100 Oxygen Delivery Method R
[2022-05-06 01:30] VITALS: BP 99/62; PULSE 76; O2SAT 100
[2022-05-06 01:58] VITALS: BP 99/62; PULSE 76; PULSE 77; RESP 16; TEMP 36.8; O2SAT 100
== END 2022-05-06 01:58 | disposition home or self-care (01) ==
PROVIDERS: Emergency Provider Emergency Medicine
DX: R07.89 Other chest pain (principal)
CPT/HCPCS: 71045; 71275; 80048; 80076; 83690; 84484; 84702; 85025; 85651; 86140; 93005; 96360; 99285; Q9967

== ENCOUNTER 2023-02-24 18:46 | Emergency (ER) | payer BC, SELFPAY ==
[2023-02-24 20:00] VITALS: BP 137/84; PULSE 75; RESP 18; TEMP 37.1; O2SAT 99; BMI 43.7
--- NOTE | 2023-02-24 20:04 | EXP.UTC ---
Discharge Plan Disposition Patient Disposition: Home, Self-Care Condition: Good Prescriptions Prescriptions: New amoxicillin [amoxicillin] 875 mg tablet 875 mg PO Q12H Qty: 20 0RF methylprednisolone 4 mg Tablets,Dose Pack 4 mg PO DIRECTED Qty: 21 0RF pqjpgtozvxzsdkf-ducpomvim-UT [Bromfed DM] 2-30-10 mg/5 mL Syrup 5 ml PO Q6H PRN (Reason: Cough) Qty: 240 0RF Referrals Follow up/Referrals: Edis Mccoy MD [Primary Care Provider] - See instructions Activity Restrictions/Add. Instructions Additional Instructions/Restrictions: Drink plenty of fluids. Take tylenol or ibuprofen for pain or fever. Take the medications as directed. Follow up with your regular doctor. GO TO THE ER FOR ANY WORSENING SYMPTOMS Clinical Impressions Clinical Impression: Pharyngitis Stand Alone Forms Stand Alone Forms: Work/School Release Instructions Patient Instructions: Sore Throat, DI for Pharyngitis/Tonsillopharyngitis -- Adult Discharge ED Provider: Josr Grissom [facility] General Stated complaint: sore throat Time Seen by Provider: 02/24/23 20:04 History of Present Illness Provider Complaint: She states that for the past 2 days she has had worsening sore throat, chills, and malaise. Related Data Previous Rx's Medication Instructions Recorded amoxicillin 875 mg tablet 875 mg PO Q12H #20 tabs 02/24/23 wjomoyatfgfirtq-dakqmerezpyjozf-GD 5 ml PO Q6H PRN Cough #240 mL 02/24/23 2 mg-30 mg-10 mg/5 mL oral syrup (Bromfed DM) methylprednisolone 4 mg tablets in 4 mg PO DIRECTED #21 tabs 02/24/23 a dose pack Allergies Allergy/AdvReac Type Severity Reaction Status Date / Time No Known Allergies Allergy Verified 02/24/23 20:13 [facility] Disclaimer: The information contained in this section may have been updated after the patient was seen, as this information can be updated by other users. Social History Smoking Status: Never smoker second hand exposure: Yes alcohol intake: never counseling provided: none current occupational status: other Travel in the last 8 weeks: None household members: other housing: other ROS Obtained: Yes All systems reviewed & no additional complaints except as documented Constitutional Constitutional: Reports chills and Denies fever(s) Eyes Eyes: Denies eye discharge ENT Ears, Nose, Mouth, and Throat: Reports as per HPI Cardiovascular Cardiovascular: Denies chest pain Respiratory Respiratory: Denies chest congestion and Reports cough Gastrointestinal Gastrointestingal: Reports nausea; Denies abdominal pain, constipation, cramping, diarrhea or vomiting Musculoskeletal Musculoskeletal: Denies arthralgias Integumentary/Breasts Skin/Breast: Denies rash Neurologic Neurologic: Denies paresthesias Physical Exam General General appearance: alert and in no apparent distress Head Head exam: atraumatic, normocephalic and normal inspection Eye Eye exam: Present normal appearance, PERRL and EOMI ENT ENT exam: Present mucous membranes moist and normal external ear exam Expanded ENT Exam TM/Canal exam: Bilateral TM: erythema and bulging Nose exam: Absent sinus tenderness Mouth exam: Present normal external inspection; Absent drooling Teeth exam: Present normal inspection Throat exam: Present tonsillar erythema, tonsillomegaly and tonsillar exudate Neck Neck exam: Present normal inspection, full ROM and trachea midline; Absent tenderness, meningismus or lymphadenopathy Chest Chest inspection: Present normal inspection and symmetric chest wall rise; Absent tenderness Respiratory Respiratory exam: Present normal lung sounds bilaterally; Absent respiratory distress, wheezes or stridor Cardiovascular Cardiovascular exam: Present regular rate and normal rhythm; Absent systolic murmur or diastolic murmur Abdominal Exam Abdominal exam: Present soft and normal bowel sounds; Absent distention, tende
[2023-02-24 20:17] LABS: UTC Strep Screen (Rapid) Negative (Negative)
[2023-02-24 20:44] VITALS: BP 137/84; PULSE 75; RESP 18; TEMP 37.1; O2SAT 99
== END 2023-02-24 20:35 | disposition home or self-care (01) ==
PROVIDERS: Emergency Provider Nurse Practitioner Family; PCP Family Medicine
DX: J02.9 Acute pharyngitis, unspecified (principal); R05.9 Cough, unspecified; R68.83 Chills (without fever); R53.81 Other malaise
CPT/HCPCS: 87880; 99212; 99214; G0463

== ENCOUNTER 2023-07-14 19:21 | Emergency (ER) | payer BC, SELFPAY ==
[2023-07-14] VITALS (9 sets, daily range): BP systolic 113–139; BP diastolic 57–91; PULSE 74–91; RESP 18–20; TEMP 36.8; O2SAT 97–100; BMI 40.6
--- NOTE | 2023-07-14 19:29 | XR_ITS ---
PROCEDURE INFORMATION: Exam: XR Chest Exam date and time: 07/14/2023 8:03 PM Age: 28 years old Clinical indication: Shortness of breath; Additional info: SOB, lue pain TECHNIQUE: Imaging protocol: Radiologic exam of the chest. Views: 2 views. COMPARISON: CT ANGIO CHEST PE PROTOCOL 05/06/2022 12:49 AM FINDINGS: Lungs: Lungs are clear. No pulmonary edema or consolidation. Pleural spaces: No pleural effusion. No pneumothorax. Heart/Mediastinum: Cardiomediastinal silhouette is normal. Bones/joints: No acute abnormality. IMPRESSION: No acute findings.
--- NOTE | 2023-07-14 19:30 | HMH.EDGENADL ---
Discharge Plan Disposition Patient Disposition: Home, Self-Care Condition: Good Prescriptions Prescriptions: New meclizine 25 mg tablet 25 mg PO BID PRN (Reason: dizziness) Qty: 20 0RF ondansetron 4 mg tablet,disintegrating 4 mg PO Q6H PRN (Reason: nausea and vomiting) 4 Days Qty: 16 0RF No Action amoxicillin [amoxicillin] 875 mg tablet 875 mg PO Q12H Qty: 20 0RF methylprednisolone 4 mg Tablets,Dose Pack 4 mg PO DIRECTED Qty: 21 0RF epsmgcnlffioagg-ekcmhzbfa-FN [Bromfed DM] 2-30-10 mg/5 mL Syrup 5 ml PO Q6H PRN (Reason: Cough) Qty: 240 0RF Referrals Follow up/Referrals: Edis Mccoy MD [Primary Care Provider] - See instructions Activity Restrictions/Add. Instructions Additional Instructions/Restrictions: You have been evaluated in the ED for your complaints. You may follow-up with your PCP in the next 3 to 5 days. Please return to ED for any new or worsening symptoms. I have written for meclizine and Zofran to assist with your symptoms. Please use these as needed. Please make sure that you are taking in plenty of fluids over the next several days Clinical Impressions Clinical Impression: Light-headedness, Shortness of breath Discharge ED Provider: Rakan Ricardo General Adult HPI General Chief complaint: Shortness of Breath/Dyspnea Stated complaint: SOA,Shakes,HBP Time Seen by Provider: 07/14/23 19:24 History of Present Illness HPI narrative: 28-year-old female with no pertinent past medical history presents today for evaluation concerning dizziness characterized as lightheadedness, tremors and feeling as if she will pass out onset prior to arrival. Patient states that she was walking to work when her symptoms began. EMS came and noted that patient was hypertensive. She states that she has been tolerating oral intake without difficulty. Has not had any nausea, vomiting, fevers, chills or chest pain. She has had shortness of breath. Denies any diarrhea or constipation. Last menstrual period ended on the of this month. She has no further complaints. Related Data Previous Rx's Medication Instructions Recorded amoxicillin 875 mg tablet 875 mg PO Q12H #20 tabs 02/24/23 flozbbbxzppqxld-inoqsrsqwszqwjk-ZJ 5 ml PO Q6H PRN Cough #240 mL 02/24/23 2 mg-30 mg-10 mg/5 mL oral syrup (Bromfed DM) methylprednisolone 4 mg tablets in 4 mg PO DIRECTED #21 tabs 02/24/23 a dose pack meclizine 25 mg tablet 25 mg PO BID PRN dizziness #20 tabs 07/14/23 ondansetron 4 mg disintegrating 4 mg PO Q6H PRN nausea and 07/14/23 tablet vomiting 4 days #16 tabs Allergies Allergy/AdvReac Type Severity Reaction Status Date / Time No Known Allergies Allergy Verified 02/24/23 20:13 [facility] Disclaimer: The information contained in this section may have been updated after the patient was seen, as this information can be updated by other users. Social History Smoking Status: Current every day smoker tobacco type: cigarettes packs per day: 1 second hand exposure: Yes alcohol intake: never counseling provided: none current occupational status: other Travel in the last 8 weeks: None household members: other housing: other ROS Obtained: Yes All systems reviewed & no additional complaints except as documented Physical Exam General General appearance: alert and in no apparent distress Head Head exam: atraumatic and normocephalic Eye Eye exam: Present normal appearance, PERRL and EOMI ENT ENT exam: Present normal oropharynx and mucous membranes moist Neck Neck exam: Present full ROM; Absent meningismus Respiratory Respiratory exam: Absent respiratory distress, wheezes, stridor or accessory muscle use Cardiovascular Cardiovascular exam: Present normal rhythm Abdominal Exam Abdominal exam: Present soft; Absent distention, tenderness, guarding, rebound or rigidity Neurological Exam Neurological exam: Present alert, oriented X3 and CN II-XII intact; Absent motor sensory deficit Psychiatric Psychiatric exam: Present normal affect and normal mood Skin Skin exam: Present warm and dry Medical Decision Making Medical Records Medical records reviewed: Yes I reviewed the patient's medical records. Yaya Inquiry Pt receiving controlled substance: No Yaya was queried for this patient: No Vital Signs: 07/14/23 19:31 07/14/23 19:43 07/14/23 20:01 Temperature 98.3 F Temperature Source Oral Pulse Rate 90 85 Pulse Rate [Left Radial] 91 H Respiratory Rate 20 Blood Pressure 113/91 H Blood Pressure [Right Arm] 139/89 Blood Pressure Mean [Right Arm] 105 Blood Pressure Source [Right Arm] Automatic Cuff Blood Pressure Position [Right Arm] Sitting 02 Sat by Pulse Oximetry 97 97 97 Oxygen Delivery Method Room Air 07/14/23 20:30 07/14/23 21:01 07/14/23 21:31 Temperature Temperature Source Pulse Rate 75 74 79 Pulse Rate [Left Radial] Respiratory Rate Blood Pressure 116/67 118/64 123/57 L Blood Pressure [Right Arm] Blood Pressure Mean [Right Arm] Blood Pressure Source [Right Arm] Blood Pressure Position [Right Arm] 02 Sat by Pulse Oximetry 97 99 100 Oxygen Delivery Method 07/14/23 22:00 Temperature Temperature Source Pulse Rate 74 Pulse Rate [Left Radial] Respiratory Rate Blood Pressure 130/74 Blood Pressure [Right Arm] Blood Pressure Mean [Right Arm] Blood Pressure Source [Right Arm] Blood Pressure Position [Right Arm] 02 Sat by Pulse Oximetry 100 Oxygen Delivery Method Lab Data Lab Results 07/14/23 19:30: WBC 13.4 H, RBC 5.36, Hgb 13.5, Hct 42.1, MCV 78.6 L, MCH 25.2 L, MCHC 32.0, RDW 14.9, Plt Count 320, MPV 9.1, Neut % (Auto) 73.4, Lymph % (Auto) 21.3, [place] % (Auto) 3.2, Eos % (Auto) 1.2, Baso % (Auto) 0.9, Neut # (Auto) 9.9 H, Lymph # (Auto) 2.9, [place] # (Auto) 0.4, Eos # (Auto) 0.2, Baso # (Auto) 0.1, Sodium 141, Potassium 4.8, Chloride 113 H, Carbon Dioxide 24, Anion Gap 8.8, BUN 8, Creatinine 0.60, Estimated Creat Clear 288, Estimated GFR 121, Est GFR ( Amer) 146, Glucose 100, Calcium 9.4, Magnesium 2.0, Total Bilirubin 0.8, AST 52 H, ALT 38, Alkaline Phosphatase 56, Troponin I 0.02, Total Protein 7.7, Albumin 4.3, Globulin 3.4 H, Albumin/Globulin Ratio 1.3, Serum HCG, Qual Negative 07/14/23 22:16: Troponin I < 0.01 07/14/23 19:30 07/14/23 19:30 Orders (Tests/Meds): ED MEDICATIONS Discontinued Medications Generic Name Dose Route Start Last Admin Trade Name Yovana PRN Reason Stop Dose Admin Lactated Ringer's 1,000 mls @ 999 mls/hr 07/14/23 20:56 07/14/23 21:10 Lactated Ringer's 1000 Ml Bag IV 07/14/23 21:56 999 mls/hr .Q1H1M ONE Administration Meclizine HCl 50 mg 07/14/23 20:54 07/14/23 21:10 Meclizine 25mg Tablet PO 07/14/23 20:55 50 mg ONCE ONE Administration Ondansetron HCl 4 mg 07/14/23 20:54 07/14/23 21:10 Ondansetron 4mg/2ml Vial IV 07/14/23 20:55 4 mg ONCE ONE Administration ORDERS Category Date Time Status CXR 2 view (NOT portable) [XR chest 2V] Stat Exams 07/14/23 19:29 Completed CBC w/Auto Diff [Complete Blood Count Auto Diff] Stat Lab 07/14/23 19:30 Completed CMP [Comprehensive Metabolic Panel] Stat Lab 07/14/23 19:30 Completed Magnesium Stat Lab 07/14/23 19:30 Completed Serum [HCG Qualitative, Serum] Stat Lab 07/14/23 19:30 Completed Trop I [Troponin I] Stat Lab 07/14/23 19:30 Completed Troponin I Q3H Lab 07/14/23 22:16 Completed Troponin I Q3H Lab 07/15/23 01:30 Ordered ECG Data Tracing #1: I reviewed this ECG and interpreted as documented below: EKG personally interpreted by me. Normal sinus rhythm with a rate of 81 bpm. RBBB HEART Score History (anamnesis): Slightly suspicious ECG: Normal Age: <45 years Risk factors: 1-2 risk factors Troponin: </= normal limit HEART Score: 1 Medical Decision Narrative: 28-year-old female with no pertinent past medical history presents today for evaluation concerning dizziness characterized as lightheadedness, tremors and feeling as if she will pass out onset prior to arrival. Patient states that she was walking to work when her symptoms began. EMS came and noted that patient was hypertensive. She states that she has been tolerating oral intake without difficulty. Has not had any nausea, vomiting, fevers, chills or chest pain. She has had shortness of breath. Denies any diarrhea or constipation. Last menstrual period ended on the 11th of this month. On assessment she was in medically stable and in no acute distress. Afebrile. Chest was clear to auscultation bilaterally. Abdomen soft nondistended and nontender to palpation. She was normotensive. No lower extremity edema. Other physical exam findings unremarkable. Differential diagnoses include but not limited to ACS, pleural effusion, pneumonia, electrolyte disturbance, , vagal response, among others. Patient's lab work today has been remarkable for a WBC of 13.4 no electrolyte derangements. Initial troponin 0.02. Second troponin less than 0.01. Negative screen. Chest x-ray did not show any acute cardiopulmonary disease processes on my informal interpretation. On reassessment she remains medically stable and in no acute distress. She states that her symptoms are improved after meclizine and Zofran and IV fluids. Discussed with patient ED work-up and results and current plan to discharge. Provided with return to ED precautions and instructions concerning PCP follow-up. Patient verbalized understanding and agreement with plan. Subsequently discharged hemodynamically stable and in no acute distress. Critical Care Critical Care Time Critical Care Time: No
--- NOTE | 2023-07-14 19:33 | ECG_ITS ---
APPROVED REPORT Exam: Resting ECG HR:81 bpm ECG Measurements Heart Rate 81 AXES NE 141 P 35 QRSd 107 QRS 60 QT 341 T 40 QTc 379 Conclusion SINUS RHYTHM NORMAL ECG UNCONFIRMED REPORT Electronically signed by : JUDY NEGRON, 07/15/2023 00:30:58
[2023-07-14 19:47] LABS: Basophils # 0.1 K/mm3 (0-0.2); Basophils % 0.9 % (0.1-2.0); Eosinophils # 0.2 K/mm3 (0.0-0.4); Eosinophils % 1.2 % (0.1-12.0); Hematocrit 42.1 % (37.0-47.0); Hemoglobin 13.5 g/dL (12.2-16.2); Lymphocytes # 2.9 K/mm3 (0.7-4.5); Lymphocytes % 21.3 % (10-50); Mean Corpuscular Hemoglobin 25.2 pg (27.0-31.2); Mean Corpuscular Volume 78.6 fl (81-99); Mean Platelet Volume 9.1 fl (7.4-10.4); Monocytes # 0.4 K/mm3 (0.1-1.0); Monocytes % 3.2 % (1.7-9.3); Neutrophils # 9.9 K/mm3 (1.8-7.8); Neutrophils % 73.4 % (37.0-80.0); Platelet Count 320 K/mm3 (142-424); Red Blood Count 5.36 M/mm3 (4.20-5.40); Red Cell Distribution Width 14.9 % (11.5-17.5); White Blood Count 13.4 K/mm3 (4.8-10.8)
[2023-07-14 19:48] LABS: Chloride 113 mmol/L (98-107)
[2023-07-14 19:49] LABS: Potassium 4.8 mmoL/L (3.5-5.1); Sodium 141 mmol/L (136-145)
[2023-07-14 19:51] LABS: Alanine Aminotransferase 38 U/L (12-78); Aspartate Amino Transferase 52 U/L (14-36); Blood Urea Nitrogen 8 mg/dl (7-17); Creatinine Clearance Estimated 288 mL/min (50-200); Estimated Glomerular Filt Rate 121 ml/min (>60); GFR (African American) 146 ML/MIN (>60)
[2023-07-14 19:52] LABS: Albumin Level 4.3 g/dl (3.5-5.0); Albumin/Globulin Ratio 1.3 (1.1-1.8); Alkaline Phosphatase 56 U/L (38-126); Anion Gap 8.8 mEq/L (5-15); Bilirubin,Total 0.8 mg/dl (0.2-1.3); Calcium 9.4 mg/dl (8.4-10.2); Carbon Dioxide 24 mmol/L (22.0-30.0); Globulin 3.4 g/dL (1.3-3.2); Glucose 100 mg/dl (74-100); Total Protein,Serum 7.7 g/dl (6.3-8.2)
[2023-07-14 20:04] LABS: Troponin I 0.02 ng/ml (0.00-0.034)
[2023-07-14 20:05] LABS: HCG Qualitative, Serum Negative (Negative)
[2023-07-14] MEDS: MECLIZINE 25MG TABLET 50 MG PO (21:10)
[2023-07-14] MEDS: LACTATED RINGERS 1000ML 1,000 ML 999 ML IV (21:10)
[2023-07-14] MEDS: ONDANSETRON 4MG/2ML VIAL 4 MG IV (21:10)
--- NOTE | 2023-07-14 21:18 | PC.NURSE ---
pt and pts s/o voice no needs at this time
[2023-07-14 22:51] LABS: Troponin I < 0.01 ng/ml (0.00-0.034)
--- NOTE | 2023-07-14 22:54 | PC.NURSE ---
Rounded on patient no complaints or needs at this time
== END 2023-07-14 23:12 | disposition home or self-care (01) ==
PROVIDERS: Emergency Provider Emergency Medicine; PCP Family Medicine
DX: R06.02 Shortness of breath (principal); R42 Dizziness and giddiness; F17.210 Nicotine dependence, cigarettes, uncomplicated
CPT/HCPCS: 71046; 80053; 83735; 84484; 84703; 85025; 93005; 96361; 96374; 96375; 99284; J2405

== ENCOUNTER 2023-08-06 09:52 | Outpatient (CLI) | payer BC, SELFPAY ==
--- NOTE | 2023-08-06 09:53 | CA_ITS ---
APPROVED REPORT EXAM: Comprehensive 2D, Doppler, and color-flow Echocardiogram Director Life Sciences: Catina Espinosa RCS, RVS Ht: 5 ft 10 in Wt: 312lbs BSA: 2.52 BP: 115/83 mmHg Indications: CP, Dizziness, ex-smoker, Morbid obesity, fatigue Echo Enhancing Agent Indication: Rule Out Septal Defect Agent(s) / Amount(s) Used: Agitated Saline 10 cc Comments: Negative for right to left interatrial shunt 2D Dimensions IVSd 0.76 cm LVEF (Visual) 43.10 % PWd 0.81 cm LVEF (Levine's) 51.00 % LVDd 4.80 cm LV Volume 121.60 mL LVDs 3.78 cm LV Volume Index 48.164475 mL/m2 F: 29 - 61 Left Atrium 3.55 cm LA Volume 31.40 mL LA Volume Index 12.404147 mL/m2 (M/F) 16-34 EF AP4 44.40 % EF AP2 64.1 % EF BP 51.0 % GL Strain -20.5 % M-Mode Dimensions RVDd 2.05 cm (0.9-2.6) LA Diam 3.93 cm (1.9-4.0) LVDd 4.96 cm (3.5-5.7) LVDs 3.49 cm (3.5-5.7) IVSd 0.87 cm (0.6-1.1) PWd 0.77 cm (0.6-1.1) EF (Teich) 56.50% EPSs 0.57 cm FS 29.60% EDV (Teich) 116.10 mL TAPSE 2.22 (<1.7) ESV (Teich) 50.50 mL LV Diastology E Decel Time 173 (160-240 msec) E/A Ratio 1.97 MED A' 5.60 cm/s LAT A' 8.00 cm/s Aortic Valve ОЛЬГА Index 0.93 cm2/m2 AoV Peak Rasheed. 125.0 (50-130 cm/s) AO Peak GR. 6.20 mmHg AO Mean GR. 3.10 (<5 mmHg) AO VTI 24.4 (18-25 cm) ОЛЬГА (VTI) 2.40 (2.5-4.5 cm2) Mitral Valve MV A Velocity 38.0 (40-130 cm/s) E/A Ratio 1.97 Pulmonary Valve PV Peak Velocity 95.0 (50-150 cm/s) IA End VMAX 151.0 cm/s Tricuspid Valve TR P. Velocity 274.00 cm/s RAP Estimate 10.00 mmHg RVSP 40.00 mmHg Left Ventricle The left ventricle is normal size. The left ventricular systolic function is normal. The left ventricular ejection fraction is within the normal range. There is normal left ventricular wall thickness. There is normal LV segmental wall motion. The left ventricular diastolic function is normal. LVEF is 55%. Right Ventricle The right ventricle is normal size. The right ventricular systolic function is normal. Atria The left atrium size is normal. The right atrium size is normal. There is no Doppler evidence of interatrial shunt. Agitated saline administration (bubble study) demonstrates no evidence of interatrial shunting. Aortic Valve The aortic valve opens well. There is no aortic valvular stenosis. No aortic regurgitation is present. Mitral Valve The mitral valve is normal in structure. No evidence of mitral valve stenosis. There is no mitral valve regurgitation noted. Tricuspid Valve The tricuspid valve leaflets are thin and pliable. There is insufficient TR jet to estimate RVSP. Pulmonic Valve The pulmonary valve is normal in structure. Trace pulmonic regurgitation. Great Vessels The aortic root is normal in size. The ascending aorta is not well-visualized. IVC is normal in size and collapses >50% with inspiration. Pericardium There is no pericardial effusion. Other Information Study Quality: Adequate Conclusion Normal biventricular systolic function. No significant valvular stenosis or regurgitation. No color Doppler evidence of interatrial shunt. Agitated saline administration demonstrates no interatrial shunt. Electronically signed by : Phuong Becerril MD 08/06/2023 12:49:13
== END 2023-08-06 23:59 | disposition home or self-care (01) ==
LOC: RT 09:53
PROVIDERS: PCP Family Medicine; Visit Provider Nurse Practitioner Family
DX: R07.9 Chest pain, unspecified (principal); R42 Dizziness and giddiness; R53.83 Other fatigue; E66.9 Obesity, unspecified; Z68.42 Body mass index [BMI] 45.0-49.9, adult
CPT/HCPCS: 93306

== ENCOUNTER 2023-08-12 07:27 | Outpatient (CLI) | payer BC, SELFPAY ==
--- NOTE | 2023-08-12 07:28 | CT_ITS ---
APPROVED REPORT First Line Supervisor: CLINICAL INDICATION Chest Pain TECHNIQUE Image Acquisition: A 128 slice MDCT scanner ([employer]edgeChattera View) was used for data acquisition. A noncontrast coronary calcium scan was performed. A CT attenuation threshold of 130 Hounsfield units (HU) was used for the detection of calcium in contiguous voxels of 1 sq mm in area to be counted as individual lesions. Bolus tracking in the ascending aorta with a threshold of 180 HU was performed. Immediately afterwards, ECG synchronized cardiac CT was then performed from the cardiac base to apex using retrospective gating with ECG tube current modulation. A total of 85 mL of Isovue 370 mg/mL contrast medium was administered at 5 mL/sec followed by a saline flush using a biphasic injection protocol. A tube voltage of 120 KVp was used. The patient received the following medications prior to the cardiac CT. 125 mg of oral metoprolol 15 mg of oral ivabradine 0.4 mg of sublingual nitroglycerin The average heart rate at the time of acquisition was 57 bpm and regular. Image Reconstruction Transaxial images were reconstructed at 0.67 mm slide thickness. Data was reviewed interactively on an advanced workstation capable of 2 and 3-dimensional displays in all conventional reconstruction formats, including multiplanar reformations, maximum intensity projections, curved multiplanar reformations, and volume rendered reconstructions. When applicable, selected routine images describing the relevant coronary anatomy and pathology were saved and sent to PACS. Complications None Technical Quality Overall image quality was good. Coronary artery opacification was adequate. Total DLP (Dose-Length Product) is 2107.3 mGy-cm. The reported value represents the total of one or more individual components during the CT acquisition of this date and at this time, and as such, the same value may appear in more than one CT report depending on the interpreting/reporting physicians. COMPARISON None FINDINGS CT Coronary Calcium Scoring LMA (Left Main Artery) = 0 LAD (Left Anterior Descending) = 0 LCX (Left Coronary Circumflex) = 0 RCA (Right Coronary Artery) = 0 Total Calcium Score = 0 using the AJ-130 method. The interpretation of the calcium heart score is based on the following continuum*: 0 = no calcified plaque detected (risk of coronary artery disease is very low ??? less than 5%) 1-10 = calcium detected in extremely minimal levels (risk of coronary diseases is still low ??? less than 10%) 11-100 = mild levels of plaque detected with certainty (mild or minimal narrowing of heart arteries is likely) 101-400 = definite,at least moderate levels of plaque detected (relatively high risk of a heart attack within 3-5 years) >401-999 = extensive levels of plaque detected (high risk of heart attack, high levels of vascular disease are present, high likelihood of at least one significant coronary narrowing) *The calcium heart score quantifies the burden of coronary calcification/plaque in the coronary arteries. The calcium heart score is not able to evaluate the presence or burden of non-calcified (i.e. soft) plaque. There is no identifiable calcification in the aortic valve, mitral annulus or mitral valve, pericardium, or myocardium. Coronary CT Angiography The coronary arterial system is right dominant. Quantitative Stenosis Grading: Left Main (LM): The left main originates normally from the left sinus of Valsalva. The LM bifurcates into the left anterior descending artery and left circumflex artery. The LM is patent with no evidence of atherosclerosis. Left Anterior Descending (LAD) and Diagonal Branches: The LAD gives off 2 diagonal branch(es). The LAD and its branches are patent with no evidence of atherosclerosis. There is a mid-myocardial LAD bridge measuring 10 mm length and 2 mm in depth. Left Circumflex (LCX) and Obtuse Marginals (OM): The LCX gives off 1 Obtuse Marginal (OM) branch(es). The LCX and its branches are patent with no evidence of atherosclerosis. Right Coronary Artery (RCA): The RCA originates normally from the right sinus of Valsalva. The RCA gives off a posterior descending artery (PDA) and posterolateral (PL) branches. The RCA and its branches are patent with no evidence of atherosclerosis. Non-Coronary Cardiac Findings: Analysis of the left ventricular (LV) structure and function was performed after 3-D reconstruction of the LV from axial images, with user-corrected automatic contouring for assessment of LV volumes and user-defined reconstruction from oblique planes for measurement of 3-D cardiac structure and function. -The left ventricle systolic function is normal. -There is no left atrial appendage filling defect. Two right pulmonary veins and two left pulmonary veins drain normally into the left atrium. -No pericardial thickening or calcification. -Central and branch pulmonary arteries in the pliwl-qs-rotf are unremarkable. -Thoracic aorta within the visualized thoracic aortic-branches in the [id number]-[id number] is unremarkable. Extracardiac Structures No significant extra-cardiac findings. Note, however, that this study is focused on the cardiac findings. IMPRESSION -No coronary calcification with an Agatston score = 0 using the AJ-130 method. -No evidence of significant flow-limiting atherosclerosis of the coronary arteries. -Mid-myocardial LAD bridge measuring 10 mm length and 2 mm in depth. -CAD-RADS 0. Management recommendations per ACC/AHA guidelines*, as clinically appropriate. *Recommendations: CAD RADS 0: Reassurance. Consider non-atherosclerotic causes of chest pain. CAD RADS 1: Consider non-atherosclerotic causes of chest pain. Consider preventive therapy and risk factor modification. CAD RADS 2: Consider non-atherosclerotic causes of chest pain. Consider preventive therapy and risk factor modification, particularly for patients with nonobstructive plaque in multiple segments. CAD RADS 3: Consider further functional testing. Consider symptom-guided anti-ischemic and preventive pharmacotherapy as well as risk factor modification per published guideline statements. CAD RADS 4A: Consider further functional testing or invasive coronary angiography with revascularization per published guideline statements. Consider symptom-guided anti-ischemic and preventive pharmacotherapy as well as risk factor modification per published guideline statements. CAD RADS 4B: Invasive coronary angiography recommended with revascularization per published guideline statements. Consider symptom-guided anti-ischemic and preventive pharmacotherapy as well as risk factor modification per published guideline statements. CAD RADS 5: Consider invasive angiography and/or viability assessment with revascularization per published guideline statements. Consider symptom-guided anti-ischemic and preventive pharmacotherapy as well as risk factor modification per published guideline statements. CRITICAL RESULT None COMMUNICATION Per this written report The coronary and cardiac findings of this CCTA were reviewed, reported, and signed by Jovon Becerril MD (Certified Pharmacy Technician) Conclusion Electronically signed by : Phuong Becerril MD 08/14/2023 11:51:30
[2023-08-12 08:03] VITALS: BMI 41.5
[2023-08-12 08:10] VITALS: BP 108/83; PULSE 70; RESP 18; TEMP 36.8; O2SAT 100
[2023-08-12] MEDS: IVABRADINE HCL 7.5MG TABLET *IVABRADINE+METOPROLOL REGIMINE 15 MG PO (08:10)
[2023-08-12] MEDS: METOPROLOL TARTRATE 25MG TABLET *IVABRADINE+METOPROLOL REGIMINE 25 MG PO (08:10)
[2023-08-12] MEDS: METOPROLOL TARTRATE 50MG TABLET *IVABRADINE+METOPROLOL REGIMINE 50 MG PO ×2 (08:10→09:12)
[2023-08-12 08:55] VITALS: PULSE 71
[2023-08-12 09:08] VITALS: PULSE 66
[2023-08-12 09:29] VITALS: PULSE 69
[2023-08-12 09:44] VITALS: BP 101/53; PULSE 63; RESP 18; O2SAT 100
[2023-08-12 09:50] VITALS: BP 89/60; PULSE 62; RESP 18; O2SAT 100
[2023-08-12] MEDS: IOPAMIDOL-370 (76%);100ML BOTTLE 85 ML IV (09:59)
[2023-08-12] MEDS: 0.9 % SODIUM CHLORIDE 50 ML VIAL IV (09:59)
[2023-08-12] MEDS: SODIUM CHLORIDE 0.9% 10ML SYR (RAD ONLY) 10 ML IV (10:00)
== END 2023-08-12 10:15 | disposition home or self-care (01) ==
PROVIDERS: PCP Family Medicine; Visit Provider Nurse Practitioner Family
DX: R07.9 Chest pain, unspecified (principal); R42 Dizziness and giddiness; R53.83 Other fatigue; E66.9 Obesity, unspecified; Z68.42 Body mass index [BMI] 45.0-49.9, adult
CPT/HCPCS: 75574; Q9967

== ENCOUNTER 2023-08-28 07:34 | Outpatient (CLI) | payer BC, SELFPAY ==
--- NOTE | 2023-08-28 07:34 | US_ITS ---
FINAL REPORT CLINICAL HISTORY: cp x 2 months COMPARISON: None FINDINGS: Sonographic images of the right upper quadrant were obtained. The pancreas is partially obscured. There is increased echogenicity in the liver parenchyma, consistent with fatty infiltration of the liver. There are echogenic foci in the gallbladder, with some shadowing identified, that may represent gallstones, however these are suboptimally demonstrated. There is no evidence of biliary ductal dilatation.The common duct measures 4mm. Limited images of the right kidney are unremarkable. IMPRESSION: Echogenic foci in the gallbladder, with some shadowing identified, that may represent gallstones, however these are suboptimally demonstrated. A follow-up ultrasound might be helpful if symptoms persist. Fatty infiltration of the liver. No biliary ductal dilatation. Reviewed, Interpreted and Dictated by Flako Santo III, MD Transcribed by Gislee Sullivan Authenticated and . [facility]
== END 2023-08-28 23:59 | disposition home or self-care (01) ==
LOC: RAD 07:34
PROVIDERS: PCP Family Medicine; Visit Provider Nurse Practitioner Family
DX: R07.9 Chest pain, unspecified (principal); R53.83 Other fatigue; R42 Dizziness and giddiness; E66.01 Morbid (severe) obesity due to excess calories; Z68.41 Body mass index [BMI] 40.0-44.9, adult
CPT/HCPCS: 76705

== ENCOUNTER 2023-11-03 07:25 | Outpatient (CLI) | payer BC, SELFPAY ==
--- NOTE | 2023-11-03 07:29 | US_ITS ---
FINAL REPORT CLINICAL HISTORY: RIGHT UPPER QUADRANT PAIN FINDINGS: Sonographic images of the right upper quadrant were obtained. The pancreas is partially obscured. Liver is fatty infiltrated. Gallstones are seen. There is no evidence of biliary ductal dilatation.The common duct measures 4mm. Limited images of the right kidney are unremarkable. IMPRESSION: Cholelithiasis. Fatty infiltration of the liver. Reviewed, Interpreted and Dictated by Dharmesh Mcneal MD Transcribed by Peyton Maguire Authenticated and [facility]
== END 2023-11-03 23:59 | disposition home or self-care (01) ==
LOC: RAD 07:25
PROVIDERS: PCP Physician Assistant; Visit Provider Physician Assistant
DX: R10.11 Right upper quadrant pain (principal)
CPT/HCPCS: 76705

== ENCOUNTER 2023-11-14 08:26 | Outpatient (CLI) | payer BC, SELFPAY ==
[2023-11-14 09:01] LABS: Basophils # 0.1 K/mm3 (0-0.2); Basophils % 0.9 % (0.1-2.0); Eosinophils # 0.1 K/mm3 (0.0-0.4); Eosinophils % 1.3 % (0.1-12.0); Hematocrit 39.1 % (37.0-47.0); Hemoglobin 12.1 g/dL (12.2-16.2); Lymphocytes # 2.7 K/mm3 (0.7-4.5); Lymphocytes % 28.8 % (10-50); Mean Corpuscular HGB Conc 31.1 g/dL (31.8-35.4); Mean Corpuscular Hemoglobin 24.4 pg (27.0-31.2); Mean Corpuscular Volume 78.5 fl (81-99); Mean Platelet Volume 8.1 fl (7.4-10.4); Monocytes # 0.5 K/mm3 (0.1-1.0); Monocytes % 5.1 % (1.7-9.3); Neutrophils % 63.9 % (37.0-80.0); Platelet Count 288 K/mm3 (142-424); Red Blood Count 4.98 M/mm3 (4.20-5.40); Red Cell Distribution Width 15.4 % (11.5-17.5); White Blood Count 9.5 K/mm3 (4.8-10.8)
[2023-11-14 09:10] LABS: INR 0.93 (0.9-1.1); Prothrombin Time 10.5 seconds (10.1-12.5)
[2023-11-14 10:37] LABS: Alanine Aminotransferase 29 U/L (12-78); Albumin Level 3.7 g/dl (3.5-5.0); Albumin/Globulin Ratio 1.2 (1.1-1.8); Alkaline Phosphatase 78 U/L (38-126); Anion Gap 8.6 mEq/L (5-15); Aspartate Amino Transferase 31 U/L (14-36); Bilirubin,Total 0.3 mg/dl (0.2-1.3); Blood Urea Nitrogen 13 mg/dl (7-17); Calcium 9.3 mg/dl (8.4-10.2); Carbon Dioxide 28 mmol/L (22.0-30.0); Chloride 110 mmol/L (98-107); Estimated Glomerular Filt Rate 121 ml/min (>60); GFR (African American) 146 ML/MIN (>60); Glucose 93 mg/dl (74-100); Potassium 4.6 mmoL/L (3.5-5.1); Sodium 142 mmol/L (136-145); Total Protein,Serum 6.7 g/dl (6.3-8.2)
== END 2023-11-14 23:59 | disposition home or self-care (01) ==
LOC: LAB 08:28
PROVIDERS: PCP Physician Assistant; Visit Provider Surgery
DX: K80.20 Calculus of gallbladder without cholecystitis without obstruction (principal)
CPT/HCPCS: 36415; 80053; 85025; 85610

== ENCOUNTER 2023-11-25 12:05 | Outpatient (CLI) | payer BC, SELFPAY ==
[2023-11-25 12:35] LABS: Urine Pregnancy, HCG Qual. Negative (Negative)
== END 2023-11-25 23:59 | disposition home or self-care (01) ==
LOC: PREOP 12:06
PROVIDERS: PCP Physician Assistant; Visit Provider Surgery
DX: Z01.818 Encounter for other preprocedural examination (principal); K80.20 Calculus of gallbladder without cholecystitis without obstruction
CPT/HCPCS: 81025

== ENCOUNTER 2023-12-01 06:05 | Day surgery (SDC) | payer BC, SELFPAY ==
[2023-11-25 12:06] VITALS: BMI 43.4
[2023-12-01] VITALS (10 sets, daily range): BP systolic 106–141; BP diastolic 54–90; PULSE 68–109; RESP 18; TEMP 36.9–37.6; O2SAT 95–100
[2023-12-01] MEDS: LACTATED RINGERS 1000ML 1,000 ML 25 ML IV (06:37)
--- NOTE | 2023-12-01 07:15 | P.PNANES_ITS ---
[facility] Disclaimer: The information contained in this section may have been updated after the patient was seen, as this information can be updated by other users. Medical History Chest pain Surgical History History of foot surgery History of tonsillectomy Family History Mother Coronary artery disease Liver cancer Other Family history of diabetes mellitus Social History Smoking Status: Current every day smoker tobacco type: cigarettes packs per day: 1 second hand exposure: Yes alcohol intake: never counseling provided: none substance use type: denies use current occupational status: employed and other Travel in the last 8 weeks: None household members: other housing: other [facility] Anesthesia Checklist Patient Identification Patient Identification: Arm Band and Verbal (Name & ) Structural Data Admitted From: Home Planned Operative Procedure/s: Lap. cholecystectomy Consent for Planned Operative Procedure(s) Verified: Yes Verified Documents: Surgical Consent and History and Physical NPO Status Verified Time NPO: 00:00 Chart Verification Results Verified: CBC, BMP and HCG Additional verifications Anesthesia Reactions: No Hx Blood Transfusions: No Blood Transfusion Reaction: No Airway Assessment Mallampati Score:: Class II C-Spine Mobility Assessed: Yes TMJ Mobility Assessed: Yes Dentition: Good Dentition Neurological Assessment Level of Consciousness: Awake Hx Seizures: No Numbness or tingling in extremities: No Anesthesia Plan Anesthesia Risk discussed: Yes Anesthesia Plan: Verified ASA Class: III Anesthesia Type: General
[2023-12-01] MEDS: CEFAZOLIN SODIUM 1GM ADV 1 GM IV (07:50)
[2023-12-01] MEDS: 0.9 % SODIUM CHLORIDE 100 ML IV (07:50)
[2023-12-01] MEDS: ROPIVACAINE 0.5% 30ML VIAL 150 MG (08:09)
[2023-12-01] MEDS: LIDOCAINE 1% 20ML MDV 20 ML (08:10)
--- NOTE | 2023-12-01 09:02 | EXP.OP.NOTE ---
Date of procedure: 12/01/23 Pre-op Diagnosis:: Gallbladder disease Post-op Diagnosis:: Same Procedure performed:: Laparoscopic cholecystectomy Surgeon:: Flako Choi MD [employer]:: Jerri Bain Anesthesia: GETA Estimated blood loss (mL): 20 Operative findings:: Somewhat distended gallbladder. Fatty infiltration of the liver. Operative note:: Consent was obtained patient was taken the operating room. She was given preoperative intravenous antibiotics. In the operating room she was placed in a supine position. General anesthesia was induced via endotracheal tube. Abdomen was prepped and draped in the standard surgical fashion. Subumbilical skin incision was made. Prolonged dissection was carried down to the fascia. Fascia was elevated and attempt was made with insertion of Veress needle. However this was unsuccessful with an adequate insufflation pressures. Attempt was made to insert Veress needle in the left subcostal area without success. At this time 5 mm incision was made in the left subcostal region. 5 mm optical trocar was inserted under laparoscopic visualization into the peritoneal cavity and CO2 pneumoperitoneum was achieved to 15 mmHg. 11 mm trocar was then inserted under laparoscopic visualization at the umbilical incision. 10 mm laparoscope was inserted through the umbilical trocar. Patient was positioned in reverse Trendelenburg left side down. A couple 5 mm trocars were inserted in the right upper abdomen. 10 mm trocar was inserted in the epigastrium. She had fatty infiltration of the liver. Gallbladder was grasped retracted anteriorly. There was some omental adhesions to the liver to the right lobe likely due to fatty liver. These were taken down using MELQUIADES ultrasonic harmonic belia. Infundibulum of the gallbladder was retracted anterior laterally. Blunt dissection was carried out at the neck of the gallbladder bluntly incising the visceral peritoneum. Dissection was carried out ultimately identifying the cystic duct and cystic artery. Cystic duct was isolated, multiply clipped, and sharply divided. Cystic artery was carefully coagulated with MELQUIADES ultrasonic harmonic belia and divided. Gallbladder was dissected free from the liver in a retrograde fashion using MELQUIADES ultrasonic harmonic belia. There was some unavoidable spillage of bile during the dissection process which was suctioned free. Gallbladder was placed within an Endo Catch retrieval device and removed from the peritoneal cavity via the umbilical trocar site. Gallbladder fossa and perihepatic space was irrigated and aspirated until clear. There was good hemostasis. Fascia at the umbilicus was closed under laparoscopic visualization with the laparoscopic neoclose device. Trocars were then removed as CO2 pneumoperitoneum was evacuated. Local anesthetic was infiltrated in all incisions. Skin incisions were closed with 4-0 Monocryl in a subcuticular fashion. Dermabond and dressings were applied. . Condition: stable Disposition: PACU Complications:: None immediately apparent
[2023-12-01] MEDS: MEPERIDINE 25MG/ML 1ML SYRINGE 25 MG IV (09:13)
--- NOTE | 2023-12-01 09:16 | P.PNANES_ITS ---
[facility] Anesthesia Record Part I Anesthesia Record I Intake, IV Amount: 800 Hydration: Adequate Estimated blood loss (mL): 25 Urine output (mL): 0 Blood Products used (#): none Blood Pressure: 116/68 SaO2: 95 Pulse Rate: 109 Airway Patency: Patent Respiratory Rate: 18 Temperature: 98.5 F Patient is:: Awake (Talking/Crying) and Stable Stable to PACU at:: 09:15
[2023-12-01] MEDS: HYDROMORPHONE 2MG/ML SYRINGE 0.3 MG IV ×2 (09:22→09:34)
[2023-12-01] MEDS: MORPHINE 2MG/ML SYRINGE 2 MG IV (09:27)
--- NOTE | 2023-12-01 12:00 | P.PNANES_ITS ---
[facility] Anesthesia Record Part II Anesthesia Record Part II Discharge Time: 09:40 Destination: Surgical Day Care (OP Surgery) PACU nurse assessment reviewed?: Yes Patient Condition:: Good Anesthesia Complications:: None Swallowing reflex intact?: Yes Airway Patency: Patent Cyanosis?: No Blood Pressure: 137/79 SaO2: 98 Respiratory Rate: 18 Pulse Rate: 68 Temperature: 98.5 F Mental Status: Alert & Oriented Pain level:: 0 Nausea and/or vomitting:: None Intake, IV Amount: 800 Hydration: Adequate
== END 2023-12-01 10:20 | disposition home or self-care (01) ==
PROVIDERS: PCP Physician Assistant; Visit Provider Surgery
PROC: 0FT44ZZ Resection of Gallbladder, Percutaneous Endoscopic Approach (ICD-10-PCS; CPT 47562; principal; 2023-12-01 07:30)
DX: K80.10 Calculus of gallbladder with chronic cholecystitis without obstruction (principal); K76.0 Fatty (change of) liver, not elsewhere classified
CPT/HCPCS: 47562; 81025; 96374; J3490; J0690; J1100; J1170; J1885; J2175; J2250; J2270; J2405; J3010; J7120